=== PATIENT | female | born 1990 | race Caucasian/White ===

== ENCOUNTER 2023-02-20 07:04 | Emergency (ER) | payer OTHER ==
[2023-02-20] MEDS ORDERED: KETOROLAC 60 MG/2 ML VIAL IM STA (07:38)
[2023-02-20] MEDS ORDERED: LIDOCAINE PATCH 5% TOP STA (07:38)
--- NOTE | 2023-02-20 07:46 | ED Physician Documentation ---
PD HPI BACK PAIN - Stated complaint Stated Complaint: BACK PX - Chief complaint Chief Complaint: Back Pain - History obtained from History obtained from: Patient - Additional information Additional information: Patient is a 32-year-old female presenting for evaluation of mid to low back pain that has been present since Monday. Patient reports having some chronic lower back pain but this is higher than her usual. She was at the [employer] on Monday and a larger dog jumped on her. She denies falling but did stumble backwards in an odd way. She has been taking ibuprofen and using ice without any significant improvement. She is scheduled to drive back home to [place] on Monday and was concerned that her pain could get worse before then. Denies radiation to her legs. No fevers. No recent injections in the back. Does not take a blood thinner. No IV drug use. No bowel or bladder incontinence. No saddle anesthesia. Denies concerns for . Review of Systems Constitutional: denies: Fever Cardiac: denies: Chest pain / pressure Respiratory: denies: Dyspnea GI: denies: Abdominal Pain Musculoskeletal: reports: Back pain Neurologic: denies: Headache PD PAST MEDICAL HISTORY - Present Medications Home Medications: Ambulatory Orders Medication Instructions Recorded Confirmed Cyclobenzaprine [Flexeril] 10 mg PO TID PRN #20 tablet 02/20/23 Lidocaine Patch 5% [Lidoderm Patch] 1 patch TOP DAILY PRN #10 patch 02/20/23 - Allergies Allergies/Adverse Reactions: Allergies Allergy/AdvReac Type Severity Reaction Status Date / Time No Known Drug Allergies Allergy Verified 02/20/23 07:16 PD ED PE NORMAL - General General: Alert and oriented X 3, No acute distress, Well developed/nourished - HEENT HEENT: Atraumatic - Neck Neck: Supple, no meningeal sign - Cardiac Cardiac: RRR, No murmur, Strong equal pulses - Respiratory Respiratory: No respiratory distress, Clear bilaterally - Abdomen Abdomen: Soft, Non tender - Back Back: No spinal TTP, Other (paraspinal tenderness to lower thoracic and lumbar region) - Derm Derm: Warm and dry - Extremities Extremities: Other (Motor and sensation intact in lower extremities. Negative straight leg raise.) - Neuro Neuro: Alert and oriented X 3, No motor deficit, No sensory deficit, Normal speech Results - Vitals Vitals: Vital Signs - 24 hr 02/20/23 02/20/23 07:12 08:12 Temperature 36.7 C 36.6 C Heart Rate 87 88 Respiratory 20 19 Rate Blood Pressure 134/98 H 133/79 H O2 Saturation 95 98 PD Medical Decision Making - ED course ED course: Patient is a 32-year-old female presenting for evaluation of back pain after a large dog jumped on her a few days ago. She is ambulating without any difficulty. Afebrile stable vital signs. No red flag signs or symptoms in regards to her back pain.No abdominal symptoms and abdominal exam is benign. No signs of spinal cord compromise, epidural abscess or hematoma. Patient offered x-ray but declines. Discussed options for supportive care and she is agreeable to trial of muscle relaxer and follow-up with primary care provider. She is counseled on concerning symptoms to return for. Departure - Departure Disposition: 01 Home, Self Care Clinical Impression: Back strain Condition: Stable Instructions: ED Neck Back Pain General Prescriptions: Cyclobenzaprine [Flexeril] 10 mg PO TID PRN #20 tablet PRN Reason: Spasms Lidocaine Patch 5% [Lidoderm Patch] 1 patch TOP DAILY PRN #10 patch PRN Reason: pain Comments: I have sent prescriptions to help you with your back strain to [facility] in [place]. 1 of these medications is a muscle relaxer called Flexeril. This can be sedating so do not recommend driving while taking this medication. I would recommend follow-up with your primary care provider in the next week if your symptoms or not improving. Return to the ER with worsening symptoms. Discharge Date/Time: 02/20/23 08:11
[2023-02-20 08:21] VITALS: BP 133/79; O2SAT 98
== END 2023-02-20 08:11 | disposition home or self-care (01) ==
LOC: ED 07:04
DX: S39.012A Strain of muscle, fascia and tendon of lower back, initial encounter (principal); W54.1XXA Struck by dog, initial encounter; Y92.830 Public park as the place of occurrence of the external cause
CPT/HCPCS: 96372; 99283; A9270